=== PATIENT | female | born 1985 | race Caucasian/White ===

== ENCOUNTER → 2018-08-13 11:54 | Inpatient (IN) | payer OTHER ==
[~2018-08-13] VITALS: Ht 157.5 cm; Wt 62.6 kg
== END | disposition designated cancer center or children's hospital (05) | DRG 871 ==
LOC: EDBD 07-28 21:02 → ER 07-28 21:02 → MEDJ 07-29 11:37 → MEDI 07-29 11:37 → MEDJ 08-18 16:29
PROC: 4A033R1 Measurement of Arterial Saturation, Peripheral, Percutaneous Approach (ICD-10-PCS; principal; 2017-07-29)
PROC: 3E0F7GC Introduction of Other Therapeutic Substance into Respiratory Tract, Via Natural or Artificial Opening (ICD-10-PCS; 2017-07-29)
PROC: 4A12X4Z Monitoring of Cardiac Electrical Activity, External Approach (ICD-10-PCS; 2017-07-29)
PROC: 02H633Z Insertion of Infusion Device into Right Atrium, Percutaneous Approach (ICD-10-PCS; 2017-08-17)
PROC: 02HV33Z Insertion of Infusion Device into Superior Vena Cava, Percutaneous Approach (ICD-10-PCS; 2017-08-17)
PROC: 02HV33Z Insertion of Infusion Device into Superior Vena Cava, Percutaneous Approach (ICD-10-PCS; 2017-09-19)
PROC: BH4CZZZ Ultrasonography of Head and Neck (ICD-10-PCS; 2017-10-05)
PROC: 30233N1 Transfusion of Nonautologous Red Blood Cells into Peripheral Vein, Percutaneous Approach (ICD-10-PCS; 2017-10-24)
PROC: 0CB10ZX Excision of Lower Lip, Open Approach, Diagnostic (ICD-10-PCS; 2017-10-30)
PROC: 0HB4XZZ Excision of Neck Skin, External Approach (ICD-10-PCS; 2017-10-30)
PROC: 0CJS8ZZ Inspection of Larynx, Via Natural or Artificial Opening Endoscopic (ICD-10-PCS; 2017-10-30)
PROC: 0B21XFZ Change Tracheostomy Device in Trachea, External Approach (ICD-10-PCS; 2017-10-30)
PROC: 4A00X4Z Measurement of Central Nervous Electrical Activity, External Approach (ICD-10-PCS; 2018-03-14)
PROC: B54PZZZ Ultrasonography of Bilateral Upper Extremity Veins (ICD-10-PCS; 2018-03-18)
PROC: B54PZZZ Ultrasonography of Bilateral Upper Extremity Veins (ICD-10-PCS; 2018-03-26)
PROC: B54NZZZ Ultrasonography of Left Upper Extremity Veins (ICD-10-PCS; 2018-06-22)
PROC: 05HM33Z Insertion of Infusion Device into Right Internal Jugular Vein, Percutaneous Approach (ICD-10-PCS; 2018-06-28)
PROC: B543ZZA Ultrasonography of Right Jugular Veins, Guidance (ICD-10-PCS; 2018-06-28)
DX: A41.9 Sepsis, unspecified organism (principal); L89.313 Pressure ulcer of right buttock, stage 3; T80.211A Bloodstream infection due to central venous catheter, initial encounter; N39.0 Urinary tract infection, site not specified; G93.1 Anoxic brain damage, not elsewhere classified; B37.49 Other urogenital candidiasis; K92.2 Gastrointestinal hemorrhage, unspecified; B37.0 Candidal stomatitis; I47.1 Supraventricular tachycardia; R40.3 Persistent vegetative state; J91.8 Pleural effusion in other conditions classified elsewhere; Z93.0 Tracheostomy status; Z93.1 Gastrostomy status; Z74.01 Bed confinement status; I10 Essential (primary) hypertension; B96.1 Klebsiella pneumoniae [K. pneumoniae] as the cause of diseases classified elsewhere; O75.4 Other complications of obstetric surgery and procedures; J04.10 Acute tracheitis without obstruction; J20.9 Acute bronchitis, unspecified; B96.29 Other Escherichia coli [E. coli] as the cause of diseases classified elsewhere; B95.62 Methicillin resistant Staphylococcus aureus infection as the cause of diseases classified elsewhere; D23.0 Other benign neoplasm of skin of lip; L92.8 Other granulomatous disorders of the skin and subcutaneous tissue; D50.8 Other iron deficiency anemias; K29.50 Unspecified chronic gastritis without bleeding; A41.1 Sepsis due to other specified staphylococcus; B96.5 Pseudomonas (aeruginosa) (mallei) (pseudomallei) as the cause of diseases classified elsewhere; A41.59 Other Gram-negative sepsis; B95.2 Enterococcus as the cause of diseases classified elsewhere; D23.4 Other benign neoplasm of skin of scalp and neck; R31.0 Gross hematuria